=== PATIENT | female | born 1980 | race Caucasian/White ===

== ENCOUNTER 2016-08-27 12:40 | Emergency (ER) | payer OTHER ==
--- NOTE | 2016-08-27 12:45 | PDOC ---
History of Present Illness - General History Source: Patient Exam Limitations: No Limitations - History of Present Illness Initial Comments: 08/27/16 12:53 08/27/16 12:53 <Ho Morfin - Last Filed: 08/27/16 12:53> - General History Source: Patient, Spouse Exam Limitations: No Limitations, Clinical Condition - History of Present Illness Initial Comments: 08/27/16 12:54 Patient is a 36 year old female with significant PMH of migraine headaches who presents to ED with headache. She states this feels like a migraine headache, but much worse than usual. It started this morning and was accompanied by nausea & vomiting, nonbloody. She also has photophobia at present and can only tolerate dark rooms. She denies tinnitus, fever, chills, loss of consciousness, head trauma, recent falls. She has no sick contacts. <Marcel Lopez - Last Filed: 08/27/16 14:22> - General Chief Complaint: Migraine Headache Stated Complaint: MIGRAINE Time Seen by Provider: 08/27/16 12:43 Past History <Ho Morfin - Last Filed: 08/27/16 12:53> - Travel Traveled outside of the country in the last 30 days: No Close contact w/someone who was outside of country & ill: No - Past Medical History Other medical history: Migraine headaches <Marcel Lopez - Last Filed: 08/27/16 14:22> - Past Medical History Allergies/Adverse Reactions: Allergies Allergy/AdvReac Type Severity Reaction Status Date / Time No Known Allergies Allergy Verified 08/27/16 12:42 Home Medications: Ambulatory Orders NK [No Known Home Medication] 08/27/16 Review of Systems - Review of Systems Able to Perform ROS?: Yes Is the patient limited Tamazight proficient: No ABD/GI: Yes: Nausea, Vomiting Neurological: Yes: Headache All Other Systems: Reviewed and Negative <Marcel Lopez - Last Filed: 08/27/16 14:22> *Physical Exam - Vital Signs Last Vital Signs Temp Pulse Resp BP Pulse Ox 97.7 F 111 H 18 144/85 99 08/27/16 12:41 08/27/16 12:41 08/27/16 12:41 08/27/16 12:41 08/27/16 12:41 <Ho Morfin - Last Filed: 08/27/16 12:53> - Physical Exam General Appearance: Yes: Nourished, Appropriately Dressed, Moderate Distress HEENT: positive: EOMI, Normal ENT Inspection, Pharynx Normal, Photophobia, Hearing Grossly Normal. negative: Sinus Tenderness Neck: positive: Trachea midline, Normal Thyroid, Supple Respiratory/Chest: positive: Lungs Clear, Normal Breath Sounds Cardiovascular: positive: Regular Rhythm, Regular Rate, S1, S2 Gastrointestinal/Abdominal: positive: Normal Bowel Sounds, Flat, Soft Musculoskeletal: positive: Normal Inspection. negative: CVA Tenderness Extremity: positive: Normal Inspection, Normal Range of Motion Integumentary: positive: Normal Color, Dry, Warm Neurologic: positive: Fully Oriented, Alert, Motor Strength 5/5, Responsive. negative: Disoriented <Marcel Lopez - Last Filed: 08/27/16 14:22> Medical Decision Making - Medical Decision Making 08/27/16 12:58 Impression: Migraine headache. Will start patient on IVF, Reglan 20mg and benadryl. Will reassess after meds administered & decide if imaging is necessary. 08/27/16 13:38 Moderate improvement in pain after medications given. Will also add Decadron to help reduce risk of reoccurence. Will reassess. 08/27/16 14:21 Patient states symptoms have completely resolved. Sitting upright with lights on in room without any photophobia or focal neurological issues. Ready for discharge. <Marcel Lopez - Last Filed: 08/27/16 14:22> *DC/Admit/Observation/Transfer <Ho Morfin - Last Filed: 08/27/16 12:53> <Marcel Lopez - Last Filed: 08/27/16 14:22> Diagnosis at time of Disposition: Migraine - Discharge Dispostion Disposition: HOME Condition at time of disposition: Improved - Referrals Referrals: Aleshia Yanez [Primary Care Provider] - - Patient Instructions Printed Discharge Instructions: DI for Migraine Additional Instructions: Your headache was treated today with the following medications: Benadryl 25 mg IV Reglan 20 mg IV Decadron 10 mg IV Normal saline 1 L IV Return to the emergency department immediately with ANY new, persistent or worsening symptoms. You MUST call and follow up with your doctor tomorrow. Please make sure your doctor reviews the results of your emergency department evaluation. - Post Discharge Activity Work/School Note: Back to Work
[2016-08-27 12:47] VITALS: BP 144/85; PULSE 111; TEMP 97.7; BMI 22.4
[2016-08-27] MEDS ORDERED: SODIUM CHLORIDE 1,000 ML IV STA (12:52)
[2016-08-27] MEDS ORDERED: METOCLOPRAMIDE HCL INJECTION 10 MG/2 ML VIAL IVPUSH ONE (12:52)
--- NOTE | 2016-08-27 12:57 | PDOC ---
Attending Attestation - Resident Resident Name: Marcel Lopez - ED Attending Attestation I have performed the following: I have examined & evaluated the patient, The case was reviewed & discussed with the resident, I agree w/resident's findings & plan, Exceptions are as noted - HPI HPI: 08/27/16 12:53 The patient is a 36-year-old female, with a significant past medical history of chronic intermittent migraines, who presents to the emergency department with symptoms of her typical migraine headache. It started gradually. She denies fever, neck pain, rash. She denies focal weakness or paresthesias. She denies diplopia. She denies head trauma. - Physicial Exam PE: 08/27/16 12:54 The patient is well-appearing and in no acute distress Neuro exam is nonfocal - Medical Decision Making 08/27/16 12:54 The patient is well-appearing and in no acute distress She has symptoms of her typical migraine headache Will begin IV Reglan and Benadryl 08/27/16 12:57 08/27/16 13:33 Symptoms much improved after medications Will administer IV Decadron to decrease likelihood of headache recurrence 08/27/16 14:15 Symptoms have completely resolved Repeat neurological examination nonfocal The patient would like to go home Clinical impression: Migraine headache; resolved Intractable pain; resolved I discussed the physical exam findings, ancillary test results and final diagnoses with the patient. I answered all of the patient's questions. The patient was satisfied with the care received and felt comfortable with the discharge plan and treatment plan. The patient will call their primary care physician within 24 hours to arrange follow-up and will return to the Emergency Department with any new, persistent or worsening symptoms. Discharge Disposition - Diagnosis Migraine headache - Discharge Dispostion Disposition: HOME Condition at time of disposition: Improved - Referrals Referrals: Aleshia Yanez [Primary Care Provider] - - Patient Instructions Printed Discharge Instructions: DI for Migraine Additional Instructions: Your headache was treated today with the following medications: Benadryl 25 mg IV Reglan 20 mg IV Decadron 10 mg IV Normal saline 1 L IV Return to the emergency department immediately with ANY new, persistent or worsening symptoms. You MUST call and follow up with your doctor tomorrow. Please make sure your doctor reviews the results of your emergency department evaluation. - Post Discharge Activity Work/School Note: Back to Work
[2016-08-27] MEDS ORDERED: DEXAMETHASONE SOD PHOSPHATE 10 MG/1 ML VIAL IVPUSH ONE (13:34)
[2016-08-27] MEDS ORDERED: DEXAMETHASONE SOD PHOSPHATE 10 MG/1 ML VIAL ONE (13:37)
== END 2016-08-27 14:24 | disposition home or self-care (01) ==
LOC: FER 12:40
PROC: 3E033GC Introduction of Other Therapeutic Substance into Peripheral Vein, Percutaneous Approach (ICD-10-PCS; principal; 2016-08-27)
PROC: 3E0337Z Introduction of Electrolytic and Water Balance Substance into Peripheral Vein, Percutaneous Approach (ICD-10-PCS; 2016-08-27)
DX: G43.909 Migraine, unspecified, not intractable, without status migrainosus (principal)
CPT/HCPCS: 99282-25